=== PATIENT | male | born 1970 | race Caucasian/White ===

== ENCOUNTER 2024-08-05 14:33 | Emergency (ER) | payer OTHER ==
[~2024-08-05] VITALS: Ht 182.9 cm; Wt 81.2 kg
[2024-08-05] MEDS ORDERED: IBUPROFEN 600 MG TAB PO ONE (16:00)
[2024-08-05] MEDS ORDERED: HYDROCODONE/ACETA 7.5/325 TAB PO ONE (16:00)
[2024-08-05] MEDS ORDERED: HYDROCODON-ACE1 EA10 PO (16:19)
[2024-08-05 16:34] VITALS: BP 121/78
[2024-08-05] MEDS ORDERED: CYCLOBENZAPRINE HCL 10 MG TAB PO ONE (17:00)
[2024-08-05] MEDS ORDERED: CYCLOBENZAPRINE10 MG PO (17:58)
== END 2024-08-05 16:34 | disposition home or self-care (01) ==
LOC: ED 14:33
DX: S70.01XA Contusion of right hip, initial encounter (principal); V19.9XXA Pedal cyclist (driver) (passenger) injured in unspecified traffic accident, initial encounter
CPT/HCPCS: 73502; 99283; A9270